=== PATIENT | male | born 1950 | race Caucasian/White ===

== ENCOUNTER 2019-05-03 02:58 | Inpatient (IN) | payer OTHER ==
[~2019-05-03] VITALS: Ht 185.4 cm; Wt 114.8 kg
[2019-05-03 03:00] VITALS: Ht 185.4 cm; Wt 114.8 kg
[2019-05-03 03:23] LABS: microscopic required? NO
[2019-05-03 03:37] LABS: UA SPECIFIC GRAVITY 1.025 (1.005-1.035); urine erythrocyte NEGATIVE (NEGATIVE)
[2019-05-03 03:45] LABS: BASOPHIL % 0.3 % (0-2); PLATELET COUNT 259 x10^3mcL (130-400)
[2019-05-03 03:46] LABS: RED CELL DISTRIBUTION WIDTH 15.5 % (11.5-14.5)
[2019-05-03 03:58] LABS: CALCIUM 8.5 mg/dL (8.5-10.1); CARBON DIOXIDE 26.3 mmol/L (21-32); CHLORIDE SERUM 104 mmol/L (98-107); GFR1 > 60 mL/min; GLUCOSE SERUM 116 mg/dL (74-106); POTASSIUM SERUM 3.4 mmol/L (3.5-5.1); SODIUM SERUM 141 mmol/L (136-145)
[2019-05-03 04:02] LABS: ALBUMIN 3.9 g/dL (3.4-5.0); ALKALINE PHOSPHATASE 65 U/L (46-116); ALT/SGPT 22 U/L (16-63); AST/SGOT 15 U/L (15-37); BILIRUBIN TOTAL 1.3 mg/dL (0.20-1.00)
[2019-05-03 04:14] LABS: AMPHETAMINE QUAL UR NONE DETECTED (See below)
[2019-05-03 09:01] VITALS: BP 123/72
[2019-05-03 10:33] VITALS: BP 100/56
[2019-05-03 11:01] VITALS: BP 127/73
[2019-05-03 12:07] VITALS: BP 148/81
== END 2019-05-03 21:45 | disposition expired | DRG 637 ==
LOC: ED 02:58 → IC 05:35 → DU 19:54
PROVIDERS: Emergency Medicine; ADMIT Internal Medicine Pulmonary Disease
PROC: 0BH17EZ Insertion of Endotracheal Airway into Trachea, Via Natural or Artificial Opening (ICD-10-PCS; principal; 2019-05-03)
PROC: 5A1935Z Respiratory Ventilation, Less than 24 Consecutive Hours (ICD-10-PCS; 2019-05-03)
DX: E11.649 Type 2 diabetes mellitus with hypoglycemia without coma (principal); G93.41 Metabolic encephalopathy; Z51.5 Encounter for palliative care; I10 Essential (primary) hypertension; R09.02 Hypoxemia; E66.01 Morbid (severe) obesity due to excess calories; Z66 Do not resuscitate; Z88.2 Allergy status to sulfonamides; Z88.5 Allergy status to narcotic agent; Z88.1 Allergy status to other antibiotic agents; Z86.73 Personal history of transient ischemic attack (TIA), and cerebral infarction without residual deficits; Z79.899 Other long term (current) drug therapy; Z68.32 Body mass index [BMI] 32.0-32.9, adult; Z79.4 Long term (current) use of insulin
CPT/HCPCS: 31500; 82962; A4628; G0378; J0360; J1200; J1630; J1644; J2060; J2270; J2704; J3490; J7042; Q0092; U0002